=== PATIENT | male | born 2000 | race African-American/Black ===

== ENCOUNTER → 2020-05-29 | Outpatient (CLI) | payer OTHER ==
[~2020-05-29] MED LIST: NORCO 325 MG-51 TAB
== END ==
LOC: MHCPAIN 08:55
DX: M47.817 Spondylosis without myelopathy or radiculopathy, lumbosacral region (principal); M54.5 Low back pain; M53.3 Sacrococcygeal disorders, not elsewhere classified; G89.29 Other chronic pain
CPT/HCPCS: G0463

== ENCOUNTER → 2020-06-05 | Outpatient (CLI) | payer OTHER | LOC: MHCPAIN 12:54 | DX: G57.02 Lesion of sciatic nerve, left lower limb (principal); M54.16 Radiculopathy, lumbar region; G89.29 Other chronic pain | CPT/HCPCS: J1040 ==

== ENCOUNTER → 2020-06-19 | Outpatient (CLI) | payer OTHER | LOC: MHCPAIN 13:54 | DX: G57.02 Lesion of sciatic nerve, left lower limb (principal); M54.5 Low back pain; M53.3 Sacrococcygeal disorders, not elsewhere classified; M21.70 Unequal limb length (acquired), unspecified site; G89.29 Other chronic pain | CPT/HCPCS: G0463 ==

== ENCOUNTER → 2020-07-11 | Outpatient (CLI) | payer OTHER | LOC: MHCPAIN 09:18 | DX: M54.5 Low back pain (principal) | CPT/HCPCS: G0260; J1040; Q9967 ==

== ENCOUNTER → 2020-08-20 | Outpatient (CLI) | payer OTHER | LOC: MHCPAIN 13:18 | DX: M47.817 Spondylosis without myelopathy or radiculopathy, lumbosacral region (principal); M54.5 Low back pain; M53.3 Sacrococcygeal disorders, not elsewhere classified; G89.29 Other chronic pain | CPT/HCPCS: G0463 ==

== ENCOUNTER → 2020-12-20 | Outpatient (CLI) | payer OTHER | LOC: COL.RAD 12:52 | DX: N50.82 Scrotal pain (principal) ==